=== PATIENT | female | born 1975 | race Caucasian/White ===

== ENCOUNTER 2016-05-04 16:09 | Emergency (ER) | payer OTHER ==
--- NOTE | 2016-05-04 16:54 | UC ---
Back Pain HPI - HPI Summary HPI Summary: complaint of lower lumbar pain that started 3 days ago sitting and after she stood up the back pain returned constant aching pain that radites into her right leg sometimes to her ankle standing up increases the pain nothing is lessening the pain unable to sleep d/t pain first episode in 10/2015- given flexeril, naproxen and prednisone- went to PT and was discharged denies trauma denies incontinence, denies fever - History of Current Complaint Chief Complaint: UCBackPain Stated Complaint: SCIATIC PAIN Time Seen by Provider: 05/04/16 16:39 Hx Obtained From: Patient Hx Last Menstrual Period: 04/28/16 Character: Aching Aggravating: Movement Alleviating: Nothing Associated Signs And Symptoms: Positive: Negative - Allergies/Home Medications Allergies/Adverse Reactions: Allergies Allergy/AdvReac Type Severity Reaction Status Date / Time No Known Allergies Allergy Verified 05/04/16 16:44 PMH/Surg Hx/FS Hx/Imm Hx Previously Healthy: No - lumbar pain - Surgical History Surgical History: Yes Surgery Procedure, Year, and Place: T&A, APPY, CHOLECYSTECTOMY - Family History Known Family History: Positive: Hypertension Negative: Cardiac Disease, Diabetes - Social History Occupation: Employed Full-time Lives: With Family Alcohol Use: None Substance Use Type: None Smoking Status (MU): Never Smoked Tobacco Review of Systems Constitutional: Negative Skin: Negative Eyes: Negative ENT: Negative Respiratory: Negative Cardiovascular: Negative Gastrointestinal: Negative Genitourinary: Negative Motor: Negative Neurovascular: Negative Musculoskeletal: Other: - lower back pain Neurological: Negative Psychological: Negative All Other Systems Reviewed And Are Negative: Yes Physical Exam Triage Information Reviewed: Yes Appearance: No Pain Distress, Well-Nourished, Ill-Appearing, Obese Vital Signs: Initial Vital Signs Temp 98.1 F 05/04/16 16:35 Pulse 113 05/04/16 16:35 Resp 16 05/04/16 16:35 BP 152/94 05/04/16 16:35 Pulse Ox 100 05/04/16 16:35 Vital Signs Reviewed: Yes Eyes: Positive: Conjunctiva Clear ENT: Positive: Pharynx normal, TMs normal Neck: Positive: No Lymphadenopathy Respiratory: Positive: Lungs clear, Normal breath sounds, No respiratory distress, No accessory muscle use Cardiovascular: Positive: RRR, No Murmur, Pulses Normal Abdomen Description: Positive: Nontender, Soft, Distended Bowel Sounds: Positive: Present Musculoskeletal: Positive: Other: - Spine have no noted deformities or signs of inflammation. Curvature of thoracic, and lumbar spine are within normal limits. Bony features of shoulders and hips are of equal height bilaterally. Posture is upright, and gait is smooth and normal. Spinous processes of T1-L5 palpable, midline, and non-tender; No step-offs. right lower lumbar paraspinal tenderness. Flexion, extension within normal limits. Patient can flex forward and reach toes with minimal pain. Lateral bending to the right causes discomfort Neurological: Positive: Alert, Other: - negative SLR bilaterally, patellar reflexes intact Psychological Exam: Normal Skin Exam: Normal Back Pain Course/Dx - Course Course Of Treatment: exam completed. will refer to PT. continue flexeril , naproxen , start burst of prednisone and followup with PCP - Differential Dx/Diagnosis Differential Diagnosis/HQI/PQRI: Herniated Disc, Strain, Sprain Provider Diagnoses: lower back pain Discharge - Discharge Plan Condition: Stable Disposition: HOME Prescriptions: predniSONE TAB* [Deltasone TAB*] 50 mg PO DAILY #5 tab Patient Education Materials: Low Back Strain (ED), Lumbar Radiculopathy (ED) Referrals: Vicky Raman MD [Primary Care Provider] - Additional Instructions: Your blood pressure is elevated. Please contact your primary care provider for further evaluation. Continue flexeril and naproxen as directed. Do not drink alcohol or drive while taking flexeril. start prednisone as directed Please call physical therapy for further evaluation and treatment.. Increase fluids and rest. Please review your discharge instructions. If your symptoms do not improve please call your primary care provider or return to urgent care.
[2016-05-04 17:20] VITALS: BP 149/76
== END 2016-05-04 17:20 | disposition home or self-care (01) ==
LOC: UCCORT 16:09
DX: M54.5 Low back pain (principal); E66.9 Obesity, unspecified; Z90.49 Acquired absence of other specified parts of digestive tract
CPT/HCPCS: 99212; G0463

== ENCOUNTER 2017-11-14 15:51 | Emergency (ER) | payer OTHER ==
[2017-11-14 16:11] VITALS: BP 121/74
--- NOTE | 2017-11-15 10:34 | UC ---
Discharge - Sign-Out/Discharge Documenting (check all that apply): Post-Discharge Follow Up All imaging exams completed and their final reports reviewed: No Studies - Discharge Plan Condition: Stable Disposition: HOME Prescriptions: Azithromyxin GEOVANY (NF) [Z-Geovany (Zithromax) 250 mg tabs #6] 2 tab PO .TODAY, THEN 1 DAILY #6 tab Patient Education Materials: Sinusitis (ED), Warm Compress or Soak (ED) Referrals: Kiah Mcnamara MD [Primary Care Provider] - Additional Instructions: 1. use the medication as prescribed. 2. Increas fluid intake 3. Use nasal saline as needed 4. Warm compresses to ear to help with pain and fluid drainage - Billing Disposition and Condition Condition: STABLE Disposition: Home
--- NOTE | 2017-11-17 11:48 | UC ---
Throat Pain/Nasal Dylan HPI - HPI Summary HPI Summary: Patient has had sinus and cold symptoms for the past few days no improvement. - History of Current Complaint Chief Complaint: UCEar Stated Complaint: EAR COMPLAINT Time Seen by Provider: 11/14/17 16:11 Hx Obtained From: Patient Hx Last Menstrual Period: 11/07/17 ?: No Onset/Duration: Sudden Onset Severity: Severe Pain Intensity: 7 Pain Scale Used: 0-10 Numeric Associated Signs & Symptoms: Positive: Dysphagia, Wheezing, Sinus Discomfort, Nasal Discharge - Allergies/Home Medications Allergies/Adverse Reactions: Allergies Allergy/AdvReac Type Severity Reaction Status Date / Time No Known Allergies Allergy Verified 11/14/17 16:11 Home Medications: Home Medications Losartan TAB* [Cozaar TAB*] 25 mg PO DAILY 11/14/17 [History Confirmed 11/14/17] Metoprolol Succinate XL TAB* [Toprol XL TAB*] 25 mg PO BEDTIME 11/14/17 [ History Confirmed 11/14/17] PMH/Surg Hx/FS Hx/Imm Hx Previously Healthy: Yes - Surgical History Surgical History: Yes Surgery Procedure, Year, and Place: T&A, APPY, CHOLECYSTECTOMY - Family History Known Family History: Positive: Hypertension Negative: Cardiac Disease, Diabetes - Social History Alcohol Use: None Substance Use Type: None Smoking Status (MU): Never Smoked Tobacco Review of Systems Constitutional: Chills, Fatigue Skin: Negative Eyes: Negative ENT: Sore Throat, Ear Ache, Nasal Discharge Respiratory: Cough Cardiovascular: Negative Gastrointestinal: Negative Genitourinary: Negative Motor: Negative Neurovascular: Negative Musculoskeletal: Negative Neurological: Negative Psychological: Negative Is Patient Immunocompromised?: No All Other Systems Reviewed And Are Negative: Yes Physical Exam Triage Information Reviewed: Yes Appearance: Ill-Appearing, Pain Distress Vital Signs: Initial Vital Signs Temp 97.9 F 11/14/17 16:06 Pulse 82 11/14/17 16:06 Resp 16 11/14/17 16:06 BP 121/74 11/14/17 16:06 Pulse Ox 100 11/14/17 16:06 Vital Signs Reviewed: Yes Eye Exam: Normal ENT: Positive: Pharyngeal erythema, Nasal congestion, TM bulging Dental Exam: Normal Neck exam: Normal Neck: Positive: Supple, Nontender, No Lymphadenopathy Respiratory Exam: Normal Respiratory: Positive: Chest non-tender, Lungs clear, Normal breath sounds Cardiovascular Exam: Normal Cardiovascular: Positive: RRR, No Murmur, Pulses Normal Abdominal Exam: Normal Abdomen Description: Positive: Nontender, Soft Musculoskeletal Exam: Normal Neurological Exam: Normal Psychological Exam: Normal Skin Exam: Normal Throat Pain/Nasal Course/Dx - Course Course Of Treatment: hx obtained, exam performed ,meds reviewed treated - Differential Dx/Diagnosis Differential Diagnosis/HQI/PQRI: Pharyngitis, Sinusitis Provider Diagnoses: sinusitis Discharge - Sign-Out/Discharge Documenting (check all that apply): Patient Departure All imaging exams completed and their final reports reviewed: No Studies - Discharge Plan Condition: Stable Disposition: HOME Prescriptions: Azithromyxin GEOVANY (NF) [Z-Geovany (Zithromax) 250 mg tabs #6] 2 tab PO .TODAY, THEN 1 DAILY #6 tab Patient Education Materials: Sinusitis (ED), Warm Compress or Soak (ED) Referrals: Kiah Mcnamara MD [Primary Care Provider] - Additional Instructions: 1. use the medication as prescribed. 2. Increas fluid intake 3. Use nasal saline as needed 4. Warm compresses to ear to help with pain and fluid drainage - Billing Disposition and Condition Condition: STABLE Disposition: Home
== END 2017-11-14 16:34 | disposition home or self-care (01) ==
LOC: UCCORT 15:51
DX: J32.9 Chronic sinusitis, unspecified (principal)
CPT/HCPCS: 99212; G0463

== ENCOUNTER 2019-05-09 10:59 | Emergency (ER) | payer BC, OTHER ==
[2019-05-09 12:20] VITALS: BP 132/93
--- NOTE | 2019-05-09 12:29 | UC ---
Skin Complaint HPI - HPI Summary HPI Summary: Patient presents to urgent care for evaluation rashes on her skin for approximately 10 days. Patient states initially lesions were just on her hands. 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 Patient states the wounds are very itchy. They've been popping up elsewhere on her body including her arms or back or abdomen or legs. States they're very very itchy. No drainage. Patient did tell health visit with her doctor yesterday and was given a prescription for hydroxyzine and hydrocortisone ointment that she states is not helping. Patient denies any other symptoms. No fever, chills, nausea, vomiting. No head congestion. Denies all new medications other than those prescribed. Patient denies any new foods or personal hygiene products. Patient states she does have pets but they have no fleas or other bugs that she struck them. Patient did state that her had a few lesions yesterday that were also itchy. Patient states it's worse when she gets one. No drainage. No bleeding. Patient without a history of supple. Patient's medications as undergone EMR reviewed this visit. - History of Current Complaint Chief Complaint: UCSkin Time Seen by Provider: 05/09/19 12:24 Stated Complaint: SKIN RASH Hx Obtained From: Patient Hx Last Menstrual Period: 04/26/19 Pain Intensity: 0 - Allergy/Home Medications Allergies/Adverse Reactions: Allergies Allergy/AdvReac Type Severity Reaction Status Date / Time No Known Allergies Allergy Verified 05/09/19 12:12 Home Medications: Home Medications Losartan TAB* [Cozaar TAB*] 100 mg PO QAM 11/14/17 [History Confirmed 05/09/19] Metoprolol Succinate XL TAB* [Toprol XL TAB*] 50 mg PO BEDTIME 11/14/17 [ History Confirmed 05/09/19] Hydrocortisone 1% CREAM* 1 applic DAILY 05/09/19 [History Confirmed 05/09/19] hydrOXYzine HCL TAB* [Atarax 25 MG TAB*] 25 mg PO TID PRN 05/09/19 [History Confirmed 05/09/19] hydroCHLOROthiazide [Hydrochlorothiazide] 1 tab DAILY 05/09/19 [History Confirmed 05/09/19] predniSONE 20 mg TAB [Deltasone 20 MG TAB*] 20 mg PO DAILY #13 tab 05/09/19 [Rx] predniSONE [Prednisone 20 MG TAB] 20 mg PO DAILY #11 tablet 05/09/19 [Rx] PMH/Surg Hx/FS Hx/Imm Hx Previously Healthy: Yes - Surgical History Surgical History: Yes Surgery Procedure, Year, and Place: T&A, APPY, CHOLECYSTECTOMY - Family History Known Family History: Positive: Hypertension, Non-Contributory Negative: Cardiac Disease, Diabetes - Social History Occupation: Employed Full-time Lives: With Family Alcohol Use: None Substance Use Type: None Smoking Status (MU): Never Smoked Tobacco Review of Systems All Other Systems Reviewed And Are Negative: Yes Skin: Positive: Rash Eyes: Positive: Negative ENT: Positive: Negative Respiratory: Positive: Negative Cardiovascular: Positive: Negative Gastrointestinal: Positive: Negative Genitourinary: Positive: Negative Physical Exam - Summary Physical Exam Summary: Vital Signs Reviewed: Yes A+Ox3, no distress Eyes: Conjunctiva Clear, TAWNY. EOM intact and full ENT: Hearing grossly normal TM x 2 clear, mmoist, uvula midline, no exudate, no erythema Neck: Positive: Supple Respiratory: Positive: No respiratory distress, No accessory muscle use + CTA throughout no w/r Cardiovascular: RRR nl s1, s2 no m/r CBT <2 sec abd soft + BS nt/nd no guarding, no distension Musculoskeletal Exam: CARDENAS x 4 without difficulty Strength Intact, ROM Intact Neurological: Positive: Alert, + sensation throughout Psychological: Positive: Normal Response To examiner Skin: Positive: pt with several lesion on arms, lower legs, left anterior chest - also viewed photos on cellphone of earlier lesions - appear as raised urticarial lesions. No blister. no drainage various stages - no central lesion few are small (2mm) some larger (5mm) Triage Information Reviewed: Yes Vital Signs: Initial Vital Signs Temp 97.2 F 05/09/19 12:14 Pulse 76 05/09/19 12:14 Resp 16 05/09/19 12:14 BP 132/93 05/09/19 12:14 Pulse Ox 100 05/09/19 12:14 Course/Dx - Course Course Of Treatment: Patient presented to urgent care for violation of rash she's had for approximate 10 days. Patient without any other complaints. Patient did have a total health visit yesterday was started on hydroxyzine and hydrocortisone ointment that she states did not help. Patient without any other complaints or symptoms. Patient denies any new products. On exam vital signs are stable. Patient has what appears to be urticarial lesions on her arms and legs and left anterior chest. Did not appear infectious at this time. Nonvesicular draining. Discussed with patient about using lukewarm showers, avoiding NSAIDs , will start patient prednisone taper. Encourage patient to contact dermatology for an appointment. Strict return precautions discussed. Patient' s discomfort in agreement with plan. - Diagnoses Provider Diagnosis: Rash Discharge ED - Sign-Out/Discharge Documenting (check all that apply): Patient Departure All imaging exams completed and their final reports reviewed: No Studies - Discharge Plan Condition: Stable Disposition: HOME Prescriptions: predniSONE [Prednisone 20 MG TAB] 20 mg PO DAILY #11 tablet predniSONE 20 mg TAB [Deltasone 20 MG TAB*] 20 mg PO DAILY #13 tab Patient Education Materials: Acute Rash (ED) Referrals: [facility] [Provider Group] Kiah Mcnamara MD [Primary Care Provider] - Additional Instructions: - Take prednisone EXACTLY as prescribed until - Okay to take Benadryl (1-2 tablets) every 6 hours as needed OR take Hydroxyzine as prescribed. Do not take both. This medication may cause drowsiness - do NOT drive, operate machinery or drink alcohol while taking -Take pepcid as prescribed - 2 times daily for 7 days -Avoid getting over heated (hot showers, hot tubs, exercise) for at least 48 hours - Try to avoid aspirin, NSAIDs (Motrin, Aleve, Naprosyn) for 2-3 days - Okay to apply cool compresses to the area of injury - Contact the [facility] D[facility] office today to schedule a follow-up appointment. If you have any fevers, difficulty breathing, shortness of breath or other concerns it is recommended you go immediately to the emergency department - Billing Disposition and Condition Condition: STABLE Disposition: Home
== END 2019-05-09 13:04 | disposition home or self-care (01) ==
LOC: UCCORT 10:59
DX: R21 Rash and other nonspecific skin eruption (principal)
CPT/HCPCS: 99212; G0463